=== PATIENT | female | born 1995 | race Caucasian/White ===

== ENCOUNTER 2022-09-05 17:06 | Emergency (ER) | payer OTHER ==
[~2022-09-05] VITALS: Ht 165.1 cm; Wt 116.2 kg
[2022-09-05 17:33] VITALS: BP 122/71
--- NOTE | 2022-09-05 18:18 | NUR ---
PT C/O COUGH AND SOB X1 WEEK. SWABBED AND SENT TO LAB.
[2022-09-05] MEDS ORDERED: PSYL0.4C2 PO (19:08)
[2022-09-05] MEDS ORDERED: ALBU0.0912 INH (19:08)
[2022-09-05] MEDS ORDERED: ACET-10509 PO (19:08)
--- NOTE | 2022-09-05 19:16 | NUR ---
Patient discharged with v/s stable. Written and verbal after care instructions given and explained. Patient verbalized understanding. Ambulatory with steady gait. All questions addressed prior to discharge. Advised to follow up with PMD.
[2022-09-05] MEDS ORDERED: PROM118S5 PO (19:19)
[2022-09-05] MEDS ORDERED: BENZ-300 PO (19:19)
== END 2022-09-05 19:16 | disposition home or self-care (01) ==
LOC: MED 17:06
DX: J06.9 Acute upper respiratory infection, unspecified (principal); Z20.822 Contact with and (suspected) exposure to COVID-19; E11.9 Type 2 diabetes mellitus without complications; Z79.4 Long term (current) use of insulin; Z79.899 Other long term (current) drug therapy; Z79.1 Long term (current) use of non-steroidal anti-inflammatories (NSAID)
CPT/HCPCS: 99283

== ENCOUNTER 2022-09-07 11:57 | Emergency (ER) | payer OTHER ==
[~2022-09-07] VITALS: Ht 165.1 cm; Wt 113.4 kg
[~2022-09-07 11:57] MED LIST: ACET-10509 PO; ALBU0.0912 INH; BENZ-300 PO; PROM118S5 PO; PSYL0.4C2 PO
[2022-09-07 11:58] VITALS: BP 100/45
[2022-09-07] MEDS ORDERED: SUD30 PO (13:13)
[2022-09-07] MEDS ORDERED: ALBU0.0912 IH (13:13)
[2022-09-07] MEDS ORDERED: PRED5TAB7 PO (13:13)
[2022-09-07 13:52] VITALS: BP 124/79
--- NOTE | 2022-09-07 13:53 | NUR ---
Patient discharged with v/s stable. Written and verbal after care instructions given and explained. Patient alert, oriented and verbalized understanding of instructions. Ambulatory with steady gait. All questions addressed prior to discharge. ID band removed. Patient advised to follow up with PMD. Rx of albuterol, prednisone given. Patient educated on indication of medication including possible reaction and side effects. Opportunity to ask questions provided and answered.
== END 2022-09-07 13:53 | disposition home or self-care (01) ==
LOC: MED 11:57
DX: U07.1 COVID-19 (principal); R06.02 Shortness of breath; R51.9 Headache, unspecified; E11.9 Type 2 diabetes mellitus without complications; Z88.6 Allergy status to analgesic agent; Z79.899 Other long term (current) drug therapy
CPT/HCPCS: 99283

== ENCOUNTER 2023-01-27 10:34 | Emergency (ER) | payer OTHER ==
[~2023-01-27] VITALS: Ht 167.6 cm; Wt 108.4 kg
[~2023-01-27 10:34] MED LIST changes: +ALBU0.0912 IH; +PRED5TAB7 PO; +SUD30 PO
[2023-01-27 10:43] VITALS: BP 105/68
--- NOTE | 2023-01-27 10:50 | NUR ---
27/F WALKED IN C/O LEFT KNEE PAIN S/P FALL 2 DAYS AGO. DENIES LOC OR TRAUMA TO HEAD. PMH: DM
[2023-01-27] MEDS ORDERED: ACET-10509 PO (12:02)
--- NOTE | 2023-01-27 12:12 | NUR ---
The patient's care was reviewed and supervised by [place] [address] JOSE, RN.
--- NOTE | 2023-01-27 12:12 | NUR ---
Patient discharged with v/s stable. Written and verbal after care instructions FOR KNEE SPRAIN given and explained. Patient alert, oriented and verbalized understanding of instructions. Ambulatory with steady gait. All questions addressed prior to discharge. ID band removed. Patient advised to follow up with PMD. Rx of TYLENOL XTRA STRENGTH given. Opportunity to ask questions provided and answered.
== END 2023-01-27 12:12 | disposition home or self-care (01) ==
LOC: MED 10:34
DX: S83.8X2A Sprain of other specified parts of left knee, initial encounter (principal); E11.9 Type 2 diabetes mellitus without complications; Z88.5 Allergy status to narcotic agent; Z79.4 Long term (current) use of insulin; Z79.899 Other long term (current) drug therapy; X58.XXXA Exposure to other specified factors, initial encounter; Y93.89 Activity, other specified; Y92.89 Other specified places as the place of occurrence of the external cause; Y99.8 Other external cause status
CPT/HCPCS: 73562; 99283